=== PATIENT | female | born 1980 | race Caucasian/White ===

== ENCOUNTER 2018-10-28 19:38 | Emergency (ER) | payer MEDICAID ==
[~2018-10-28] VITALS: Ht 162.6 cm; Wt 100.0 kg
[2018-10-28 19:51] VITALS: BP 172/87
[2018-10-28] MEDS ORDERED: SULF1TAB49 PO (20:38)
== END 2018-10-28 20:46 | disposition home or self-care (01) ==
LOC: ER 19:39
DX: L72.3 Sebaceous cyst (principal)
CPT/HCPCS: 99283